=== PATIENT | male | born 1980 ===

== ENCOUNTER 2022-01-01 10:09 | Emergency (ER) | payer BC ==
[2022-01-01] MEDS: Silver Sulfadiazine 1% Crm 400 GM Jar TOP ONE (11:32)
[2022-01-01] MEDS: Silver Sulfadiazine 1% Crm 400 GM Jar ONE (11:33)
== END 2022-01-01 12:07 | disposition home or self-care (01) ==
LOC: LL.ED 10:09
DX: T33.522A Superficial frostbite of left hand, initial encounter (principal); T33.521A Superficial frostbite of right hand, initial encounter; T33.822A Superficial frostbite of left foot, initial encounter; T33.821A Superficial frostbite of right foot, initial encounter; T23.232A Burn of second degree of multiple left fingers (nail), not including thumb, initial encounter; T23.239A Burn of second degree of unspecified multiple fingers (nail), not including thumb, initial encounter; X31.XXXA Exposure to excessive natural cold, initial encounter
CPT/HCPCS: 16000; 99283; 99283-25; A9270-GY